=== PATIENT | male | born 2000 | race African-American/Black ===

== ENCOUNTER → 2018-01-24 | Outpatient (REF) | payer MEDICAID | LOC: M SFHCPLAZ 17:04 | DX: Z00.00 Encounter for general adult medical examination without abnormal findings (principal) ==

== ENCOUNTER → 2018-06-26 | Outpatient (REF) | payer MEDICAID | LOC: M SFHCLERA 10:55 | PROVIDERS: ATTEND Nurse Practitioner Family | DX: R53.81 Other malaise (principal) ==